=== PATIENT | female | born 1995 | race Caucasian/White ===

== ENCOUNTER 2019-07-17 08:59 | Emergency (ER) | payer SELFPAY ==
[~2019-07-17] VITALS: Ht 162.6 cm; Wt 73.9 kg
[2019-07-17] MEDS ORDERED: ONDANSETRON PF 4 MG/2 ML VIAL. IV ONE (11:15)
[2019-07-17] MEDS: ACETAMINOPHEN 500 MG TABLET PO ONE ×2 (11:15→11:27)
[2019-07-17] MEDS ORDERED: VANCOMYCIN PER PHARMACY MC ONE (11:15)
[2019-07-17] MEDS ORDERED: MORPHINE SULFATE 4 MG/ML VIAL. IV/SQ PRN (11:15)
[2019-07-17] MEDS: IV NORMAL SALINE 1000ML BAG 1,000 ML IV SCH ×3 (11:27→15:01)
[2019-07-17 11:39] LABS: CALCIUM 10.2 mg/dL (8.5-10.1); CREATININE 0.8 mg/dL (0.6-1.0); GFR 88.1; POTASSIUM 3.8 mmol/L (3.5-5.1)
[2019-07-17 11:46] LABS: ALBUMIN 3.4 g/dL (3.4-5.0); ALBUMIN/GLOBULIN RATIO 0.5 (1.0-1.7); BASO % 0 % (0-3); EOS % 0 % (0-3); HEMATOCRIT 38.7 % (36.0-47.0); HEMOGLOBIN 13.4 g/dL (12.0-15.5); LYMPH # 0.7 x10^3/uL (1.0-4.8); LYMPH % 5 % (24-48); MEAN CORPUSCULAR HEMOGLOBIN 33 pg (25-35); MEAN CORPUSCULAR HGB CONC 35 g/dL (31-37); MEAN CORPUSCULAR VOLUME 94 fL (79-100); MONO # 0.3 x10^3/uL (0.0-1.1); MONO % 2 % (0-9); NEUT # 12.7 x10^3/uL (1.8-7.7); NEUT % 92 % (31-73); PLATELET COUNT 405 x10^3/uL (140-400); RED BLOOD COUNT 4.11 x10^6/uL (3.50-5.40); RED CELL DISTRIBUTION WIDTH 12.5 % (11.5-14.5); TOTAL BILIRUBIN 0.8 mg/dL (0.2-1.0); TOTAL PROTEIN 9.7 g/dL (6.4-8.2); WHITE BLOOD COUNT 13.8 x10^3/uL (4.0-11.0)
[2019-07-17 11:56] LABS: BILIRUBIN,URINE NEGATIVE (NEG); CLARITY,URINE CLOUDY; COLOR,URINE YELLOW; NITRITE,URINE NEGATIVE (NEG); PROTEIN,URINE 30 mg/dL (NEG-TRACE)
[2019-07-17] MEDS ORDERED: VANCOMYCIN 1.75 GM in IV NORMAL SALINE 500ML BAG 500 ML IV ONE (12:00)
[2019-07-17 12:02] LABS: SQUAMOUS EPITHELIAL CELL,UR FEW /LPF
[2019-07-17 12:03] LABS: BACTERIA,URINE FEW /HPF (0-FEW); RBC,URINE OCC /HPF (0-2)
[2019-07-17 12:27] LABS: % LYMPHS 3 % (24-48); % MONOS 5 % (0-10); % SEGS 92 % (35-66); PLT ESTIMATE INCREASED (ADEQUATE)
[2019-07-17] MEDS ORDERED: IOHEXOL 300 MG/ML 100ML VIAL. IV ONE (12:30)
[2019-07-17] MEDS ORDERED: CONTRAST GIVEN. MC PRN (12:30)
--- NOTE | 2019-07-17 13:21 | RAD ---
CT ABD PELV W/ IV CONTRST ONLY Indication: Right lower quadrant abdominal pain and fever, nausea and vomiting and diarrhea Technique: Postcontrast CT imaging was performed of the abdomen pelvis, multiplanar reconstruction images submitted. No oral contrast was given. One or more of the following individualized dose reduction techniques were utilized for this examination: 1. Automated exposure control 2. Adjustment of the mA and/or kV according to patient size 3. Use of iterative reconstruction technique. Comparison: None Findings: Normal caliber appendix is visualized without adjacent inflammatory change. Accurate evaluation of bowel is limited without oral contrast, no bowel dilatation, free air, free fluid. Both kidneys enhance, no hydronephrosis. There is no adrenal nodularity. Gallbladder is present without obvious intraluminal abnormality by CT. No focal abnormality is identified of the liver, spleen, pancreas. There is some dependent density of the visualized lung bases bilaterally more likely component of atelectasis, also degree of groundglass density present. IMPRESSION: 1. No significant acute abnormality is identified, no CT evidence of acute appendicitis. 2. There is some density of the visualized lung bases bilaterally likely component of atelectasis although also degree of groundglass density present which can be associated with edema or inflammatory change. Electronically signed by: George Allison MD (07/17/2019 1:18 PM) [id number]
[2019-07-17] MEDS ORDERED: ACETAMINOPHEN 500 MG TABLET PO ONE (14:00)
--- NOTE | 2019-07-17 15:05 | RAD ---
EXAM: Chest, 2 views. HISTORY: Fever. COMPARISON: None. FINDINGS: 2 views of the chest are obtained. There is mild increased perihilar opacity. There is no consolidation, pleural effusion or pneumothorax. The heart is normal in size. IMPRESSION: Mild increased bilateral perihilar opacity suggesting a component of small airways disease or viral pneumonia. There is no consolidated infiltrate. Electronically signed by: Magda Coronel MD (07/17/2019 3:02 PM) [place] [id number]
[2019-07-17] MEDS ORDERED: ONDA4TAB7 PO (15:58)
[2019-07-17] MEDS ORDERED: PRED50TA PO (15:58)
[2019-07-17] MEDS ORDERED: VENTOLIN HFA18 GM INH (15:58)
--- NOTE | 2019-07-17 15:58 | PHYS DOC ---
Past Medical History Past Medical History: Other Additional Past Medical Histor: CHRONIC BACK PAIN Past Surgical History: Tonsillectomy, Other Additional Past Surgical Histo: ARM/ORAL Alcohol Use: Occasionally Drug Use: Marijuana Adult General Chief Complaint Chief Complaint: NAUSEA/VOMITING/DIARRHA HPI HPI Patient is a 24 year old female who presents to the ED today with a fever and generalized abdominal pain nausea and vomiting that began 2 days ago. Patient states she was evaluated at urgent care and they did a couple test including a flu swab which was negative. Denies any hematemesis or melena. Denies any urgency frequency dysuria. She states her whole body hurts. Review of Systems Review of Systems Constitutional: Reports fever and body aches Eyes: Denies change in visual acuity, redness, or eye pain [] HENT: Denies nasal congestion or sore throat [] Respiratory: Denies cough or shortness of breath [] Cardiovascular: No additional information not addressed in HPI [] GI: Reports abdominal pain with nausea and vomiting, denies bloody stools or diarrhea [] : Denies dysuria or hematuria [] Musculoskeletal: Denies back pain or joint pain [] Integument: Denies rash or skin lesions [] Neurologic: Denies headache, focal weakness or sensory changes [] All other systems were reviewed and found to be within normal limits, except as documented in this note. Current Medications Current Medications Current Medications Medications (Trade) Dose Ordered Sig/Krissy Start Time Stop Time Status Last Admin Dose Admin Acetaminophen (Tylenol) 1,000 mg 1X ONCE 07/17/19 14:00 07/17/19 14:01 DC 07/17/19 13:51 1,000 MG Info (CONTRAST GIVEN -- Rx MONITORING) 1 each PRN DAILY PRN 07/17/19 12:30 07/19/19 12:29 Iohexol (Omnipaque 300 Mg/ml) 75 ml 1X ONCE 07/17/19 12:30 07/17/19 12:31 DC 07/17/19 12:52 75 ML Levofloxacin/ Dextrose 100 ml @ 100 mls/hr 1X ONCE 07/17/19 11:15 07/17/19 12:14 DC 07/17/19 11:27 100 MLS/HR Morphine Sulfate (Morphine Sulfate) 4 mg PRN Q15MIN PRN 07/17/19 11:15 07/18/19 11:14 07/17/19 11:28 4 MG Ondansetron HCl (Zofran) 4 mg 1X ONCE 07/17/19 11:15 07/17/19 11:16 DC 07/17/19 11:27 4 MG Sodium Chloride 1,000 ml @ 2,220 mls/hr Q28M 07/17/19 11:02 07/17/19 12:02 DC 07/17/19 15:01 2,220 MLS/HR Vancomycin HCl (Vanco Per Pharmacy) 1 each 1X ONCE 07/17/19 11:15 07/17/19 13:34 DC Vancomycin HCl 1.75 gm/Sodium Chloride 500 ml @ 250 mls/hr 1X ONCE 07/17/19 12:00 07/17/19 13:59 DC 07/17/19 13:23 250 MLS/HR Allergies Allergies Allergies Coded Allergies Type Severity Reaction Last Updated Verified Penicillins Allergy Intermediate 07/17/19 Yes amoxicillin Allergy Intermediate 07/17/19 Yes Physical Exam Physical Exam Constitutional: Well developed, well nourished, no acute distress, non-toxic appearance. [] HENT: Normocephalic, atraumatic, bilateral external ears normal, oropharynx moist, no oral exudates, nose normal. [] Eyes: PERRLA, EOMI, conjunctiva normal, no discharge. [] Neck: Normal range of motion, no tenderness, supple, no stridor. [] Cardiovascular:Heart rate regular rhythm, no murmur [] Lungs & Thorax: Bilateral breath sounds clear to auscultation [] Abdomen: Bowel sounds normal, soft, no tenderness, no masses, no pulsatile masses. [] Skin: Warm, dry, no erythema, no rash. [] Back: No tenderness, no CVA tenderness. [] Extremities: No tenderness, no cyanosis, no clubbing, ROM intact, no edema. [] Neurologic: Alert and oriented X 3, normal motor function, normal sensory function, no focal deficits noted. [] Psychologic: Affect normal, judgement normal, mood normal. [] Current Patient Data Vital Signs Vital Signs Date Time Temp Pulse Resp B/P (MAP) Pulse Ox O2 Delivery O2 Flow Rate FiO2 07/17/19 13:29 101.1 101.1 07/17/19 12:39 92 28 103/65 (78) 97 Room Air Lab Values Laboratory Tests Test 07/17/19 10:43 07/17/19 11:20 07/17/19 11:44 Urine Collection Type Unknown Urine Color Yellow Urine Clarity Cloudy Urine pH 6.0 Urine Specific [place] 1.025 Urine Protein 30 mg/dL (NEG-TRACE) Urine Glucose (UA) Negative mg/dL (NEG) Urine Ketones (Stick) >=80 mg/dL (NEG) Urine Blood Negative (NEG) Urine Nitrite Negative (NEG) Urine Bilirubin Negative (NEG) Urine Urobilinogen Dipstick 1.0 mg/dL (0.2 mg/dL) Urine Leukocyte Esterase Negative (NEG) Urine RBC Occ /HPF (0-2) Urine WBC 1-4 /HPF (0-4) Urine Squamous Epithelial Cells Few /LPF Urine Bacteria Few /HPF (0-FEW) Urine Mucus Mod /LPF White Blood Count 13.8 x10^3/uL (4.0-11.0) H Red Blood Count 4.11 x10^6/uL (3.50-5.40) Hemoglobin 13.4 g/dL (12.0-15.5) Hematocrit 38.7 % (36.0-47.0) Mean Corpuscular Volume 94 fL (79-100) Mean Corpuscular Hemoglobin 33 pg (25-35) Mean Corpuscular Hemoglobin Concent 35 g/dL (31-37) Red Cell Distribution Width 12.5 % (11.5-14.5) Platelet Count 405 x10^3/uL (140-400) H Neutrophils (%) (Auto) 92 % (31-73) H Lymphocytes (%) (Auto) 5 % (24-48) L Monocytes (%) (Auto) 2 % (0-9) Eosinophils (%) (Auto) 0 % (0-3) Basophils (%) (Auto) 0 % (0-3) Neutrophils # (Auto) 12.7 x10^3/uL (1.8-7.7) H Lymphocytes # (Auto) 0.7 x10^3/uL (1.0-4.8) L Monocytes # (Auto) 0.3 x10^3/uL (0.0-1.1) Eosinophils # (Auto) 0.0 x10^3/uL (0.0-0.7) Basophils # (Auto) 0.0 x10^3/uL (0.0-0.2) Segmented Neutrophils % 92 % (35-66) H Lymphocytes % 3 % (24-48) L Monocytes % 5 % (0-10) Platelet Estimate Increased (ADEQUATE) Sodium Level 138 mmol/L (136-145) Potassium Level 3.8 mmol/L (3.5-5.1) Chloride Level 97 mmol/L (98-107) L Carbon Dioxide Level 24 mmol/L (21-32) Anion Gap 17 (6-14) H Blood Urea Nitrogen 7 mg/dL (7-20) Creatinine 0.8 mg/dL (0.6-1.0) Estimated GFR (Cockcroft-Gault) 88.1 BUN/Creatinine Ratio 9 (6-20) Glucose Level 79 mg/dL (70-99) Lactic Acid Level 0.8 mmol/L (0.4-2.0) Calcium Level 10.2 mg/dL (8.5-10.1) H Total Bilirubin 0.8 mg/dL (0.2-1.0) Aspartate Amino Transferase (AST) 30 U/L (15-37) Alanine Aminotransferase (ALT) 20 U/L (14-59) Alkaline Phosphatase 128 U/L (46-116) H Total Protein 9.7 g/dL (6.4-8.2) H Albumin 3.4 g/dL (3.4-5.0) Albumin/Globulin Ratio 0.5 (1.0-1.7) L Lipase 35 U/L (73-393) L Procalcitonin 0.10 ng/mL (0.00-0.10) POC Urine HCG, Qualitative Hcg negative (Negative) Laboratory Tests 07/17/19 11:20 Laboratory Tests 07/17/19 11:20 EKG EKG [] Radiology/Procedures Radiology/Procedures []PROCEDURE: CHEST PA & LATERAL EXAM: Chest, 2 views. HISTORY: Fever. COMPARISON: None. FINDINGS: 2 views of the chest are obtained. There is mild increased perihilar opacity. There is no consolidation, pleural effusion or pneumothorax. The heart is normal in size. IMPRESSION: Mild increased bilateral perihilar opacity suggesting a component of small airways disease or viral pneumonia. There is no consolidated infiltrate. Electronically signed by: Magda Courtney MD (07/17/2019 3:02 PM) [id number] DICTATED and SIGNED BY: MAGDA COURTNEY MD DATE: 07/17/19 1502 PROCEDURE: CT ABD PELV W/ IV CONTRST ONLY CT ABD PELV W/ IV CONTRST ONLY Indication: Right lower quadrant abdominal pain and fever, nausea and vomiting and diarrhea Technique: Postcontrast CT imaging was performed of the abdomen pelvis, multiplanar reconstruction images submitted. No oral contrast was given. One or more of the following individualized dose reduction techniques were utilized for this examination: 1. Automated exposure control 2. Adjustment of the mA and/or kV according to patient size 3. Use of iterative reconstruction technique. Comparison: None Findings: Normal caliber appendix is visualized without adjacent inflammatory change. Accurate evaluation of bowel is limited without oral contrast, no bowel dilatation, free air, free fluid. Both kidneys enhance, no hydronephrosis. There is no adrenal nodularity. Gallbladder is present without obvious intraluminal abnormality by CT. No focal abnormality is identified of the liver, spleen, pancreas. There is some dependent density of the visualized lung bases bilaterally more likely component of atelectasis, also degree of groundglass density present. IMPRESSION: 1. No significant acute abnormality is identified, no CT evidence of acute appendicitis. 2. There is some density of the visualized lung bases bilaterally likely component of atelectasis although also degree of groundglass density present which can be associated with edema or inflammatory change. Electronically signed by: Tameka You MD (07/17/2019 1:18 PM) [id number] DICTATED and SIGNED BY: TAMEKA YOU MD DATE: 07/17/19 1318 Course & Med Decision Making Course & Med Decision Making Pertinent Labs and Imaging studies reviewed. (See chart for details) This is a 24-year-old female patient who presents to the ED today complaining of fever, nausea, vomiting, body aches, abdominal pain generalized, symptoms began 2 days ago. Patient arrives in the ED with a temperature of 99.6 and a heart rate of 104. Sepsis workup was initiated. Lactic is normal, CBC with a WBC of 13.8, CMP with no acute findings. Urine analysis is negative for infection. CT of the abdomen and pelvic is negative for any acute findings. Patient was given IV fluids as well as antibiotics in the ED. Chest x-rays show reactive airway disease versus viral pneumonia. Will be discharged with supportive care measures. We will also be given a prescription for albuterol inhaler, prednisone, Zofran. Instructed to take Tylenol/Motrin for pain or fever and push fluids. Dragon Disclaimer Dragon Disclaimer This electronic medical record was generated, in whole or in part, using a voice recognition dictation system. Departure Departure Impression: Primary Impression: Viral pneumonia Additional Impressions: Fever Nausea & vomiting Disposition: 01 HOME, SELF-CARE Condition: STABLE Referrals: NO PCP (PCP) follow up with your doctor next week Patient Instructions: Fever, Adult, [id number], Nausea and Vomiting, [id number] Additional Instructions: You were evaluated in the emergency room with symptoms consistent with a viral illness. Use the prescribed medications as ordered. Try to push fluids. Maintain good hand hygiene. Follow-up with your doctor in 1-2 weeks. Scripts Ondansetron Hcl (ZOFRAN) 4 Mg Tablet 1 TAB PO Q6HRS, #20 TAB Prov: ENMA LOJA APRN 07/17/19 Prednisone (PREDNISONE) 50 Mg Tablet 1 TAB PO DAILY, #5 TAB Prov: ENMA LOJA APRN 07/17/19 Albuterol Sulfate (VENTOLIN HFA INHALER) 18 Gm Hfa.aer.ad 2 PUFF INH Q4HRS for FOR ASTHMA, #1 INHALER 0 Refills Prov: ENMA LOJA APRN 07/17/19 Problem Qualifiers Additional Impressions: Fever Fever type: unspecified Qualified Codes: R50.9 - Fever, unspecified Nausea & vomiting Vomiting type: unspecified Vomiting Intractability: non-intractable Qualified Codes: R11.2 - Nausea with vomiting, unspecified ENMA LOJA APRN Jul 17, 2019 15:58
[2019-07-17 16:17] VITALS: BP 109/63
== END 2019-07-17 16:18 | disposition home or self-care (01) ==
LOC: ER 08:59
DX: J12.9 Viral pneumonia, unspecified (principal); R11.2 Nausea with vomiting, unspecified; R10.84 Generalized abdominal pain; G89.29 Other chronic pain; Z88.0 Allergy status to penicillin; Z88.1 Allergy status to other antibiotic agents
CPT/HCPCS: 36415; 71046; 74177; 80053; 81001; 81025; 83605; 83690; 84145; 85007; 85025; 87040; 96361; 96365; 96366; 96368; 96375; 99285; J1956; J2270; J2405; J3370; J7030; J7040; Q9967